=== PATIENT | male | born 1950 | race Caucasian/White ===

== ENCOUNTER 2016-06-04 06:34 | Day surgery (SDC) | payer MEDICARE, MEDICAID ==
[~2016-06-04 06:34] MED LIST: Dextrose 5%-0.45% NaCl 1,000 ML IV SCH; Midazolam 1 MG/ML 2 ML SDV ONE; Sodium Chloride 0.9% 10 ML Syringe FLUSH PRN; fentaNYL 100 MCG/2 ML SDV ONE
[2016-06-04] MEDS ORDERED: fentaNYL 100 MCG/2 ML SDV IV ONE ×4 (08:08→14:38)
[2016-06-04] MEDS ORDERED: Midazolam 1 MG/ML 2 ML SDV IV ONE ×7 (08:09→14:38)
--- NOTE | 2016-06-04 08:55 | OR ---
DATE: 06/04/2016 PROCEDURE: Total colonoscopy, NBI, and cold snare polypectomy. INSTRUMENT USED: CF-H180AL Olympus video colonoscope. PREMEDICATIONS: Fentanyl 150 mcg intravenous, Versed 4 mg intravenous. Nasal O2 cannula. The procedure was done under pulse oximetry, BP recording, and cardiac cath tech. INDICATION: The patient with rectal bleeding. Colonoscopic examination is done for detection of any polypoid lesions and removal, endoscopic hemostasis therapy if needed. DESCRIPTION OF PROCEDURE: Initial rectal exam showed external hemorrhoidal tags. Rigid anoscopy showed small internal hemorrhoids without bleeding from them. The colonoscope was passed with ease. Numerous scattered diverticula were noted along with some deformity. In the distal descending colon, 5 mm sized benign- appearing pedunculated polyp was noted, NBI views were obtained, photographs were taken, cold snare polypectomy was done, the tissue was retrieved and sent for histopathology. The scope was passed with ease to the ileocecal area, photographs were taken of the normal-appearing cecum, identified by landmarks of appendiceal orifice and double-bulged ileocecal folds. No bleeding was noted from any of the visualized areas at the commencement of the examination. No stricture. No vascular ectasia. No large isolated ulcerations seen. No evidence of diffuse inflammatory bowel disease in the form of friability, contact bleeding, or ulcerations. Probing the proximal sides of folds and flexures, using adequate distention and clearing up the stool material, withdrawal of the scope was made, cecum to rectum time over 6 minutes. No bleeding was noted from any of the visualized areas at the completion of examination. IMPRESSION: 1. External and internal hemorrhoids. 2. Diverticulosis. 3. Descending colon polyp. The patient tolerated the procedure well. [facility] /[id number]
[2016-06-04 10:55] VITALS: BP 129/79
--- NOTE | 2016-06-04 12:05 | LETTER ---
06/04/2016 Arianna Acuna MD [address] [place] [address] RE: SOHEILA YU : [address] Acuna: Mr. Soheila Yu had colonoscopic examination done this morning and he tolerated the procedure well. I herewith send a copy of the endoscopy note and photographs for your review. He had a CT scan of the abdomen done recently which is suggestive of pancreatic cyst. I would appreciate you obtaining an MRCP study on him and let me know the report as to any followup management needed with reference to suspected pancreatic cyst. Thank you. Sincerely, [facility] /[id number]
== END 2016-06-04 10:20 | disposition home or self-care (01) ==
LOC: DL.ENDO 06:34
PROVIDERS: ATTEND Internal Medicine Gastroenterology
DX: D12.4 Benign neoplasm of descending colon (principal); K64.4 Residual hemorrhoidal skin tags; K64.8 Other hemorrhoids; K57.30 Diverticulosis of large intestine without perforation or abscess without bleeding
CPT/HCPCS: 45385; 88305; J2250; J3010; J7042